=== PATIENT | female | born 1960 | race Hispanic/Latino ===

== ENCOUNTER → 2021-07-23 | Outpatient (CLI) | payer OTHER | END | disposition home or self-care (01) | LOC: OIH 09:09 | PROVIDERS: ATTEND Family Medicine | DX: G54.5 Neuralgic amyotrophy (principal); M48.07 Spinal stenosis, lumbosacral region; E11.9 Type 2 diabetes mellitus without complications; I10 Essential (primary) hypertension; M17.12 Unilateral primary osteoarthritis, left knee; M85.88 Other specified disorders of bone density and structure, other site; Z02.71 Encounter for disability determination | CPT/HCPCS: 72100; 73560 ==